=== PATIENT | male | born 1995 | race American Indian/Alaskan Native ===

== ENCOUNTER 2016-08-13 10:33 | Inpatient (IN) | payer OTHER ==
[2016-08-13] MEDS ORDERED: Sodium Chloride 0.9% 1,000 ML IV STA (11:11)
--- NOTE | 2016-08-13 11:20 | ED PDOC ---
HPI: Abdomen Time Seen by Provider: 08/13/16 10:47 Chief Complaint (Nursing): Abdominal Pain Chief Complaint (Provider): abdominal pain, nausea vomiting History Per: Patient History/Exam Limitations: no limitations Onset/Duration Of Symptoms: Days (2), Gradual Current Symptoms Are (Timing): Intermittent Episodes Context: Food Severity: Moderate Location Of Pain/Discomfort: Diffuse, Epigastric Quality Of Discomfort: Sharp, Cramping Associated Symptoms: Nausea, Vomiting, Loss Of Appetite. denies: Diarrhea, Back Pain, Chest Pain Exacerbating Factors: Food Alleviating Factors: None Last Bowel Movement: Today Additional Complaint(s): 21yo male c/o abdominal pain poorly localized but noticed first in his epigastrum, thinks "i may have an ulcer", associated with nausea nonbloody vomiting and loss of appetite. No fever. No diarrhea. Denies foreign travel, IVDU, undercooked or raw foods or sick contacts. No prior history of recent similar symptoms. Past Medical History Reviewed: Historical Data, Nursing Documentation, Vital Signs Vital Signs: Last Vital Signs Temp 6 F L 08/13/16 10:41 Pulse 58 L 08/13/16 10:41 Resp 20 08/13/16 10:41 BP 121/73 08/13/16 10:41 Pulse Ox 100 08/13/16 11:20 - Medical History PMH: No Chronic Diseases - Surgical History Surgical History: No Surg Hx - Family History Family History: States: Unknown Family Hx - Living Arrangements Living Arrangements: With Family - Social History Drugs: Denies - Immunization History Hx Tetanus Toxoid Vaccination: No Hx Influenza Vaccination: No Hx Pneumococcal Vaccination: No - Home Medications Home Medications: Ambulatory Orders Medication Instructions Recorded No Known Home Med [No Known Home 01/28/15 Med] - Allergies Allergies/Adverse Reactions: Allergies Allergy/AdvReac Type Severity Reaction Status Date / Time No Known Allergies Allergy Verified 02/19/14 08:07 Review of Systems ROS Statement: Except As Marked, All Systems Reviewed And Found Negative Constitutional: Negative for: Fever, Chills Cardiovascular: Negative for: Chest Pain, Palpitations Respiratory: Negative for: Cough, Shortness of Breath Gastrointestinal: Positive for: Nausea, Vomiting, Abdominal Pain. Negative for : Diarrhea, Melena, Hematochezia, Hematemesis Genitourinary Male: Negative for: Dysuria, Frequency Skin: Negative for: Rash, Lesions Neurological: Negative for: Weakness, Numbness, Headache, Dizziness Physical Exam - Reviewed Nursing Documentation Reviewed: Yes Vital Signs Reviewed: Yes - Physical Exam Appears: Positive for: Well, Non-toxic, No Acute Distress Head Exam: Positive for: ATRAUMATIC, NORMAL INSPECTION, NORMOCEPHALIC Skin: Positive for: Normal Color, Warm, DRY Eye Exam: Positive for: EOMI, Normal appearance, PERRL ENT: Positive for: Normal ENT Inspection Neck: Positive for: Normal, Painless ROM Cardiovascular/Chest: Positive for: Regular Rate, Rhythm Respiratory: Positive for: CNT, Normal Breath Sounds Gastrointestinal/Abdominal: Positive for: Bowel Sounds, Soft, Tenderness (mild diffuse nonlocalized tenderness) Back: Positive for: Normal Inspection Extremity: Positive for: Normal ROM Neurologic/Psych: Positive for: Alert, Oriented - Laboratory Results Result Diagrams: 08/13/16 11:23 08/13/16 11:23 - ECG O2 Sat by Pulse Oximetry: 100 Pulse Ox Interpretation: Normal Medical Decision Making Medical Decision Making: workup for undifferentiated abdominal pain and nausea initiated. Bloodwork, IVF, antiemetic, pepcid and bentyl ordered. Labs reveal significant transaminitis. Normal bili, mild elev Alk Phos and total CK. Pt denies known prior history of hepatitis or liver problems. Denies psychiatric history or tylenol use. Additional hepatitis panel ordered. US RUQ unremarkable. 340p d/w GI control system manager Dr Velazco, recommends coags, admit will consult. Care transferred to Dr De Santiago hospitalist. Disposition - Clinical Impression Clinical Impression: Acute hepatitis, Elevated transaminase measurement - Patient ED Disposition Is Patient to be Admitted: Yes Counseled Patient/Family Regarding: Studies Performed, Diagnosis, Need For Followup - Disposition Disposition Time: 15:40 Condition: GOOD - Pt Status Changed To: Hospital Disposition Of: Observation - POA Present On Arrival: None
[2016-08-13 11:34] LABS: BASO # 0.1 K/uL (0.0-0.2); BASO % 0.7 % (0.0-2.0); EOS # 0.2 K/uL (0.0-0.7); HEMATOCRIT 44.9 % (35.0-51.0); LYMPH # 1.7 K/uL (1.0-4.3); LYMPH % 18.9 % (20.0-40.0); MEAN CELL VOLUME 97.3 fl (80.0-94.0); MEAN CORPUSCULAR HEMOGLOBIN 32.6 pg (27.0-31.0); MEAN CORPUSCULAR HGB CONC 33.5 g/dL (33.0-37.0); MEAN PLATELET VOLUME 8.6 fl (7.2-11.7); MONO # 1.1 K/uL (0.0-0.8); MONO % 12.5 % (0.0-10.0); NEUT # 5.8 K/uL (1.8-7.0); NEUT % 65.9 % (50.0-75.0); NRBC % 0.1 % (0.0-0.0); RED CELL DISTRIBUTION WIDTH 13.5 % (11.5-14.5); WHITE BLOOD COUNT 8.9 K/uL (4.8-10.8)
[2016-08-13 11:43] LABS: RBC URINE 6 /hpf (0-3); URINE BILIRUBIN NEGATIVE (NEGATIVE); URINE BLOOD NEGATIVE (NEGATIVE); URINE COLOR AMBER (YELLOW); URINE GLUCOSE (UA) NEG (Normal); URINE KETONE NEGATIVE (NEGATIVE); URINE LEUKOCYTE ESTERASE NEG Leu/uL (Negative); URINE PROTEIN 30 mg/dL (NEGATIVE); WBC URINE 2 /hpf (0-5)
[2016-08-13 11:45] LABS: ALB/GLOB RATIO 1.2 (1.0-2.1); ALKALINE PHOSPHATASE 129 U/L (38-126); BILIRUBIN,TOTAL 1.3 mg/dl (0.2-1.3); BLOOD UREA NITROGEN 13 mg/dl (9-20); CALCIUM 10.2 mg/dL (8.4-10.2); CARBON DIOXIDE 28 mmol/L (22-30); CHLORIDE 102 mmol/L (98-107); GFR AFRICAN-AMERICAN > 60; GLUCOSE,RANDOM 100 mg/dL (75-110); LIPASE 74 U/L (23-300); SODIUM 144 mmol/l (132-148)
[2016-08-13 11:48] LABS: POTASSIUM 4.3 MMOL/L (3.6-5.0)
[2016-08-13 12:16] LABS: AST/SGOT 1409 U/L (17-59)
[2016-08-13 12:42] LABS: ALT/SGPT 2331 U/L (21-72)
--- NOTE | 2016-08-13 15:05 | US ---
HISTORY: RUQ, abnormal LFTs COMPARISON: None available. TECHNIQUE: Sonographic evaluation of the right upper quadrant of the abdomen. FINDINGS: LIVER: Measures 16.2 cm in length and appears otherwise within normal limits. No focal hepatic mass identified. The main portal vein appears patent with normal directional flow. No intrahepatic bile duct dilatation. GALLBLADDER: No gallstones. No gallbladder wall thickening or pericholecystic edema. Negative sonographic Greer's sign as assessed by the photographic printer. COMMON BILE DUCT: Measures 2 mm. PANCREAS: Not well-visualized. RIGHT KIDNEY: Measures 10.6 x 5.7 x 3.6 cm. No obstructing calculus or hydronephrosis. AORTA: Limited visualization appears grossly unremarkable. IVC: Limited visualization appears grossly unremarkable. OTHER FINDINGS: None . IMPRESSION: Unremarkable right upper quadrant ultrasound as above.
--- NOTE | 2016-08-13 16:43 | CP.PCM.HP ---
History of Present Illness - History of Present Illness History of Present Illness: CC: abdominal pain HPI: 21 year old male with no past medical history presents with a 2 day history of moderate the severe waxing and waning abdominal pain midepigastric and in a band like distribution in the upper regions. This was associated with 2 episodes of nonbloody nonbilious emesis, and nausea and anorexia. Patient was extensively questioned on substance abuse, alcohol use, recent travel, contacts with recent travel, sexual history, one partner in 5 years. US in ER was neg for RUQ pathology. Transaminases were significantly elevated, AST/ALT 1400/2300 , normal TBILI and lipase. Hep panel and HIV negative. patient made NPO, given fluids. GI consulted in ER, Dr. Velazco, appreciated and followed. Discussed with ER attending. Vitals stable, no acute distress ROS: per HPI, all other systems reviewed and negative by me PMH: none PSH: none FH: DM HTN SH: Denies tobacco, ETOH, IVDU, one young son. MEDS: as below and reviewed ALLERGIES: NKDA SURROGATE DECISION MAKER: EXAM: Vitals stable and reviewed Temp Pulse Resp BP Pulse Ox 97.7 F 58 L 16 120/68 97 08/13/16 17:10 08/13/16 17:10 08/13/16 17:10 08/13/16 17:10 08/13/16 16:53 GEN: WDWN, alert, cooperative HEENT: NCAT, PERRL, EOMI Neck: supple, no lymphadenopathy CARDIO: +S1S2, RRR, NO M/R/G LUNG: CTAB, NO W/R/R ABD: soft, +generalized tenderness, ND, no masses, no HSM EXT: no edema, pedal pulses Neuro: AAOx3, Strength equal, bilateral UE/LE Psych: normal mood, normal affect LABS as below and reviewed Most Recent Lab Values WBC 8.9 K/uL (4.8-10.8) 08/13/16 11:23 RBC 4.62 Mil/uL (4.40-5.90) 08/13/16 11:23 Hgb 15.1 g/dL (12.0-18.0) 08/13/16 11:23 Hct 44.9 % (35.0-51.0) 08/13/16 11:23 MCV 97.3 fl (80.0-94.0) H 08/13/16 11:23 MCH 32.6 pg (27.0-31.0) H 08/13/16 11:23 MCHC 33.5 g/dL (33.0-37.0) 08/13/16 11:23 RDW 13.5 % (11.5-14.5) 08/13/16 11:23 Plt Count 217 K/uL (130-400) 08/13/16 11:23 MPV 8.6 fl (7.2-11.7) 08/13/16 11:23 Neut % (Auto) 65.9 % (50.0-75.0) 08/13/16 11: Lymph % (Auto) 18.9 % (20.0-40.0) L 08/13/16 11:23 Hamilton % (Auto) 12.5 % (0.0-10.0) H 08/13/16 11:23 Eos % (Auto) 2.0 % (0.0-4.0) 08/13/16 11:23 Baso % (Auto) 0.7 % (0.0-2.0) 08/13/16 11:23 Neut # 5.8 K/uL (1.8-7.0) 08/13/16 11:23 Lymph # 1.7 K/uL (1.0-4.3) 08/13/16 11:23 Hamilton # 1.1 K/uL (0.0-0.8) H 08/13/16 11:23 Eos # 0.2 K/uL (0.0-0.7) 08/13/16 11:23 Baso # 0.1 K/uL (0.0-0.2) 08/13/16 11:23 PT 12.1 SECONDS (9.6-11.2) H 08/13/16 16:45 INR 1.16 (0.92-1.08) H 08/13/16 16:45 APTT 25.6 SECONDS (23.3-32.5) 08/13/16 16:45 Sodium 144 mmol/l (132-148) 08/13/16 11:23 Potassium 4.3 MMOL/L (3.6-5.0) 08/13/16 11:23 Chloride 102 mmol/L (98-107) 08/13/16 11:23 Carbon Dioxide 28 mmol/L (22-30) 08/13/16 11:23 Anion Gap 18 (10-20) 08/13/16 11:23 BUN 13 mg/dl (9-20) 08/13/16 11:23 Creatinine 0.9 mg/dL (0.8-1.5) 08/13/16 11:23 Est GFR ( Amer) > 60 08/13/16 11:23 Est GFR (Non-Af Amer) > 60 08/13/16 11:23 Random Glucose 100 mg/dL (75-110) 08/13/16 11:23 Calcium 10.2 mg/dL (8.4-10.2) 08/13/16 11:23 Total Bilirubin 1.3 mg/dl (0.2-1.3) 08/13/16 11:23 AST 1409 U/L (17-59) H 08/13/16 11:23 ALT 2331 U/L (21-72) H 08/13/16 11:23 Alkaline Phosphatase 129 U/L (38-126) H D 08/13/16 11:23 Total Creatine Kinase 216 U/L (55-170) H 08/13/16 11:28 Total Protein 8.0 G/DL (6.3-8.2) 08/13/16 11:23 Albumin 4.4 g/dL (3.5-5.0) 08/13/16 11:23 Globulin 3.6 gm/dL (2.2-3.9) 08/13/16 11:23 Albumin/Globulin Ratio 1.2 (1.0-2.1) 08/13/16 11:23 Lipase 74 U/L (23-300) 08/13/16 11:23 Urine Color Brittany (YELLOW) 08/13/16 11:23 Urine Clarity Slighty-cloudy (Clear) 08/13/16 11:23 Urine pH 5.0 (5.0-8.0) 08/13/16 11:23 Ur Specific [place] 1.034 (1.003-1.030) H 08/13/16 11:23 Urine Protein 30 mg/dL (NEGATIVE) 08/13/16 11:23 Urine Glucose (UA) Neg mg/dL (Normal) 08/13/16 11:23 Urine Ketones Negative mg/dL (NEGATIVE) 08/13/16 11:23 Urine Blood Negative (NEGATIVE) 08/13/16 11:23 Urine Nitrate Negative (NEGATIVE) 08/13/16 11:23 Urine Bilirubin Negative (NEGATIVE) 08/13/16 11:23 Urine Urobilinogen 4.0 mg/dL (0.2-1.0) 08/13/16 11:23 Ur Leukocyte Esterase Neg Marjorie/uL (Negative) 08/13/16 11:23 Urine RBC (Auto) 6 /hpf (0-3) H 08/13/16 11:23 Urine Microscopic WBC 2 /hpf (0-5) 08/13/16 11:23 Ur Squamous Epith Cells < 1 /hpf (0-5) 08/13/16 11:23 Acetaminophen < 10.0 ug/ml (10.0-30.0) L 08/13/16 16:45 Hepatitis A IgM Ab Negative (NEGATIVE) 08/13/16 14:00 Hep Bs Antigen Negative (NEGATIVE) 08/13/16 14:00 Hep B Core IgM Ab Negative (NEGATIVE) 08/13/16 14:00 Hepatitis C Antibody Negative (NEGATIVE) 08/13/16 14:00 HIV-1 Ab Rapid Screen Non reactive (NON REAC) 08/13/16 16:45 Medications Allergies No Known Allergies Allergy (Verified 02/19/14 08:07) Height & Weight Height 6 ft Weight 130 lb Start Date/Time Active Medications 08/13/16 16:40 Ondansetron [Zofran Inj] 4 mg IVP Q6 PRN 08/13/16 17:52 Ketorolac [Toradol] 15 mg IVP Q6 PRN 08/13/16 18:00 Potassium Ch 20mEq in D5-1/2NS [Potassium Chl 20 mEq in D5-1/2NS] 1,000 ml IV 125 mls/hr 08/14/16 09:00 Enoxaparin [Lovenox] 40 mg SC DAILY ASSESSMENT AND PLAN: 21 year old male with no past medical history presents with a 2 day history of moderate the severe waxing and waning abdominal pain midepigastric and in a band like distribution in the upper regions. This was associated with 2 episodes of nonbloody nonbilious emesis, and nausea and anorexia. Patient was extensively questioned on substance abuse, alcohol use, recent travel, contacts with recent travel, sexual history, one partner in 5 years. US in ER was neg for RUQ pathology. Transaminases were significantly elevated, AST/ALT 1400/2300 , normal TBILI and lipase. Hep panel and HIV negative. patient made NPO, given fluids. GI consulted in ER, Dr. Velazco, appreciated and followed. Discussed with ER attending. Vitals stable, no acute distress Abdominal Pain Elevated Transaminases Acute Hepatitis AST/ALT 1400/2300, normal TBILI and lipase. Hep panel and HIV negative GI Consult appreciated and followed NPO Maintenance Fluids Vitals stable, NAD UDS pending DVT ppx lovenox Present on Admission - Present on Admission Any Indicators Present on Admission: No Past Patient History - Infectious Disease Hx of Infectious Diseases: None - Past Social History Drugs: Denies - CARDIAC Hx Cardiac Disorders: No - PSYCHIATRIC Hx Substance Use: No - SURGICAL HISTORY Hx Surgeries: No - ANESTHESIA Hx Anesthesia: No Meds Allergies/Adverse Reactions: Allergies Allergy/AdvReac Type Severity Reaction Status Date / Time No Known Allergies Allergy Verified 02/19/14 08:07 Results - Vital Signs Recent Vital Signs: Last Vital Signs Temp 6 F L 08/13/16 10:41 Pulse 58 L 08/13/16 10:41 Resp 20 08/13/16 10:41 BP 121/73 08/13/16 10:41 Pulse Ox 100 08/13/16 16:08 - Labs Result Diagrams: 08/13/16 11:23 08/13/16 11:23
[2016-08-13] MEDS ORDERED: Sodium Chloride 0.9% 1,000 ML IV SCH (16:45)
[2016-08-13 17:22] LABS: PARTIAL THROMBOPLASTIN TIME 25.6 SECONDS (23.3-32.5)
--- NOTE | 2016-08-13 17:57 | CP.PCM.CON ---
History of Present Illness - History of Present Illness History of Present Illness: 21 yo male admitted with epigastric and LUQ abdominal pain associated with nausea and vomiting starting Thursday 2 30 AM. Found to have very high LFTs. No recent travel or shellfish/sushi consumption. No prior significant medical history. Review of Systems - Constitutional Constitutional: absent: Chills - EENT Eyes: absent: Blind Spots Ears: absent: Decreased Hearing Nose/Mouth/Throat: absent: Epistaxis - Cardiovascular Cardiovascular: absent: Chest Pain - Respiratory Respiratory: absent: Cough - Gastrointestinal Gastrointestinal: Abdominal Pain, Vomiting Past Patient History - Infectious Disease Hx of Infectious Diseases: None - Past Social History Drugs: Denies - CARDIAC Hx Cardiac Disorders: No - PSYCHIATRIC Hx Substance Use: No - SURGICAL HISTORY Hx Surgeries: No - ANESTHESIA Hx Anesthesia: No Meds Allergies/Adverse Reactions: Allergies Allergy/AdvReac Type Severity Reaction Status Date / Time No Known Allergies Allergy Verified 02/19/14 08:07 - Medications Medications: Current Medications Enoxaparin Sodium (Lovenox) 40 mg SC DAILY [facility] PRN Reason: Protocol Potassium Chloride/Dextrose/Sod Cl (Potassium Chl 20 Meq In D5-1/2ns) 1,000 mls @ 125 mls/hr IV .Q8H [facility] Stop: 08/14/16 18:01 Ketorolac Tromethamine (Toradol) 15 mg IVP Q6 PRN PRN Reason: pain 4-10 Ondansetron HCl (Zofran Inj) 4 mg IVP Q6 PRN PRN Reason: Nausea/Vomiting Physical Exam - Eye Exam Pupil Exam: PERRL - ENT Exam ENT Exam: Mucous Membranes Moist - Cardiovascular Exam Cardiovascular Exam: REGULAR RHYTHM, +S1, +S2 - GI/Abdominal Exam GI & Abdominal Exam: Normal Bowel Sounds, Soft, Tenderness Additional comments: epigastrum and LUQ Results - Vital Signs Recent Vital Signs: Last Vital Signs Temp 97.7 F 08/13/16 17:10 Pulse 58 L 08/13/16 17:10 Resp 16 08/13/16 17:10 BP 120/68 08/13/16 17:10 Pulse Ox 97 08/13/16 16:53 - Labs Result Diagrams: 08/13/16 11:23 08/13/16 11:23 Labs: Laboratory Results - last 24 hr 08/13/16 16:45 PT 12.1 H INR 1.16 H APTT 25.6 Acetaminophen < 10.0 L HIV-1 Ab Rapid Screen Non reactive - Imaging and Cardiology US - abdomen Status: Report reviewed by me Assessment & Plan (1) Transaminitis Assessment and Plan: Acute elevation LFTs. Cause unclear. Broad lab workup ordered. Repeat LFTs in AM. Status: Acute
[2016-08-13 18:49] LABS: IRON 142 ug/dL (49-181)
[2016-08-13] MEDS ORDERED: Pneumococcal 23-Valent Vaccine IM ONE (20:00)
[2016-08-13] MEDS: Potassium Ch 20mEq in D5-1/2NS 1,000 ML IV SCH (20:31)
[2016-08-14] MEDS: Potassium Ch 20mEq in D5-1/2NS 1,000 ML IV SCH ×4 (03:40→22:57)
[2016-08-14 06:33] LABS: CHLORIDE 104 mmol/L (98-107); SODIUM 138 mmol/l (132-148)
[2016-08-14 06:35] LABS: ALB/GLOB RATIO 1.2 (1.0-2.1); ALKALINE PHOSPHATASE 108 U/L (38-126); BILIRUBIN,TOTAL 1.8 mg/dl (0.2-1.3); CARBON DIOXIDE 24 mmol/L (22-30); GFR AFRICAN-AMERICAN > 60; TOTAL PROTEIN 6.3 G/DL (6.3-8.2)
[2016-08-14 06:36] LABS: BLOOD UREA NITROGEN 10 mg/dl (9-20); CALCIUM 8.6 mg/dL (8.4-10.2); GLUCOSE,RANDOM 97 mg/dL (75-110)
[2016-08-14 07:07] LABS: BASO % 0.4 % (0.0-2.0); EOS # 0.3 K/uL (0.0-0.7); EOS % 2.8 % (0.0-4.0); HEMATOCRIT 43.2 % (35.0-51.0); LYMPH % 20.6 % (20.0-40.0); MEAN CELL VOLUME 97.7 fl (80.0-94.0); MEAN CORPUSCULAR HGB CONC 33.7 g/dL (33.0-37.0); MEAN PLATELET VOLUME 8.7 fl (7.2-11.7); MONO # 1.2 K/uL (0.0-0.8); MONO % 11.8 % (0.0-10.0); NEUT # 6.3 K/uL (1.8-7.0); NEUT % 64.4 % (50.0-75.0); NRBC % 0.2 % (0.0-0.0); RED CELL DISTRIBUTION WIDTH 13.6 % (11.5-14.5); WHITE BLOOD COUNT 9.8 K/uL (4.8-10.8)
[2016-08-14 07:18] LABS: ALT/SGPT 1900 U/L (21-72); AST/SGOT > 750 U/L (17-59)
[2016-08-14] MEDS: Enoxaparin 40 mg Syringe SC SCH (08:13)
[2016-08-14 15:06] LABS: CYTOMEGALOVIRUS AB (IGG) <0.91 (<0.91)
[2016-08-14 15:32] LABS: EPSTEIN-BARR VCA AB IGM <0.91 (<0.91)
--- NOTE | 2016-08-14 15:38 | CP.PCM.PN ---
Subjective - Date & Time of Evaluation Date of Evaluation: 08/14/16 Time of Evaluation: 15:36 - Subjective Subjective: Patient with persisting abdominal pain in left upper abdomen Objective - Vital Signs/Intake and Output Vital Signs (last 24 hours): Temp Pulse Resp BP Pulse Ox 97.1 F L 67 20 109/75 98 08/14/16 07:54 08/14/16 07:54 08/14/16 07:54 08/14/16 07:54 08/14/16 07:54 - Medications Medications: Current Medications Enoxaparin Sodium (Lovenox) 40 mg SC DAILY [facility] PRN Reason: Protocol Last Admin: 08/14/16 08:13 Dose: 40 mg Potassium Chloride/Dextrose/Sod Cl (Potassium Chl 20 Meq In D5-1/2ns) 1,000 mls @ 125 mls/hr IV .Q8H [facility] Stop: 08/14/16 18:01 Last Admin: 08/14/16 13:22 Dose: 125 mls/hr Ketorolac Tromethamine (Toradol) 15 mg IVP Q6 PRN PRN Reason: pain 4-10 Last Admin: 08/14/16 13:22 Dose: 15 mg Ondansetron HCl (Zofran Inj) 4 mg IVP Q6 PRN PRN Reason: Nausea/Vomiting - Labs Labs: 08/14/16 05:35 08/14/16 05:35 PT 12.1 SECONDS (9.6-11.2) H 08/13/16 16:45 INR 1.16 (0.92-1.08) H 08/13/16 16:45 APTT 25.6 SECONDS (23.3-32.5) 08/13/16 16:45 - Head Exam Head Exam: ATRAUMATIC - Eye Exam Eye Exam: Normal appearance - ENT Exam ENT Exam: Mucous Membranes Moist - Neck Exam Neck Exam: Normal Inspection - Respiratory Exam Respiratory Exam: NORMAL BREATHING PATTERN - Cardiovascular Exam Cardiovascular Exam: REGULAR RHYTHM - GI/Abdominal Exam GI & Abdominal Exam: Soft, Tenderness, Normal Bowel Sounds Additional comments: LUQ tenderness Assessment and Plan (1) Transaminitis Assessment & Plan: LUQ abdominal pain persisits. LFTs still very high though numbers are slightly lower. Continue to follow labs. Pantoprazole added. CT abdomen. Status: Acute
[2016-08-14] MEDS ORDERED: Iohexol 240 (50 ml) PO ONE (15:45)
--- NOTE | 2016-08-14 16:53 | CP.PCM.PN ---
Subjective - Date & Time of Evaluation Date of Evaluation: 08/14/16 Time of Evaluation: 16:42 - Subjective Subjective: pt seen examined at bedside, complains of increased pain given additional dose of toradol with relief no chest pain no dyspnea vitals stable no acute distress pt to get CT abd with and without contrast for consistent abdominal pain. discussed with patient's mother with patient consent: Celeste Vanegas [phone] who would like to be kept updated. Objective - Vital Signs/Intake and Output Vital Signs (last 24 hours): Temp Pulse Resp BP Pulse Ox 98.2 F 76 18 113/76 97 08/14/16 16:29 08/14/16 16:29 08/14/16 16:29 08/14/16 16:29 08/14/16 16:29 - Medications Medications: Current Medications Enoxaparin Sodium (Lovenox) 40 mg SC DAILY [facility] PRN Reason: Protocol Last Admin: 08/14/16 08:13 Dose: 40 mg Potassium Chloride/Dextrose/Sod Cl (Potassium Chl 20 Meq In D5-1/2ns) 1,000 mls @ 125 mls/hr IV .Q8H [facility] Stop: 08/14/16 18:01 Last Admin: 08/14/16 13:22 Dose: 125 mls/hr Ketorolac Tromethamine (Toradol) 15 mg IVP Q6 PRN PRN Reason: pain 4-10 Last Admin: 08/14/16 13:22 Dose: 15 mg Ondansetron HCl (Zofran Inj) 4 mg IVP Q6 PRN PRN Reason: Nausea/Vomiting Last Admin: 08/14/16 16:34 Dose: 4 mg Pantoprazole Sodium (Protonix Inj) 40 mg IVP BID [facility] Last Admin: 08/14/16 16:27 Dose: 40 mg - Labs Labs: 08/14/16 05:35 08/14/16 05:35 PT 12.1 SECONDS (9.6-11.2) H 08/13/16 16:45 INR 1.16 (0.92-1.08) H 08/13/16 16:45 APTT 25.6 SECONDS (23.3-32.5) 08/13/16 16:45 Assessment and Plan - Assessment and Plan (Free Text) Plan: 21 year old male with no past medical history presents with a 2 day history of moderate the severe waxing and waning abdominal pain midepigastric and in a band like distribution in the upper regions. This was associated with 2 episodes of nonbloody nonbilious emesis, and nausea and anorexia. Patient was extensively questioned on substance abuse, alcohol use, recent travel, contacts with recent travel, sexual history, one partner in 5 years. US in ER was neg for RUQ pathology. Transaminases were significantly elevated, AST/ALT 1400/2300 , normal TBILI and lipase. Hep panel and HIV negative. patient made NPO, given fluids. GI consulted in ER, Dr. Velazco, appreciated and followed. Discussed with ER attending. Vitals stable, no acute distress Abdominal Pain Transaminitis Afebrile, no WBC Patient with increased cramping abdominal pain this morning, given additional toradol. Has not had BM in 3 days. HD stable. Will obtain CT Abd w and w/o Contrast today. Protonix also added per GI recs , appreciated and followed AST/ALT 1400/2300 on admission, normal TBILI and lipase. This morning AST/ALT >750/1900, improving, TBILI elevated to 1.8 from 1.5 yesterday HIV negative CMV IgG Ab NEG CMV IgM Ab PENDING EBV Ag IgM Ab NEG Hep panel NEG GI Consult appreciated and followed NPO Maintenance Fluids, continue D5 1/2 NS + 20 KCl Vitals stable, NAD UDS +cannabinoids Pain control with Toradol DVT ppx lovenox Discussed with patient's mother with patient consent: Celeste Vanegas [phone] who would like to be updated.
[2016-08-14 17:49] LABS: CYTOMEGALOVIRUS AB (IGM) <0.2 AI (< OR = 0.8)
[2016-08-14] MEDS ORDERED: Sodium Chloride 0.9% 50 ML IV ONE (17:53)
[2016-08-14] MEDS ORDERED: Iohexol 300 100 ML IJ ONE (17:53)
--- NOTE | 2016-08-14 19:10 | CT ---
PROCEDURE: CT Abdomen and Pelvis with contrast HISTORY: Abdominal pain COMPARISON: None. TECHNIQUE: Contrast dose: 95 cc Omnipaque 300 Radiation dose: Total exam DLP = 269.52 mGy-cm. FINDINGS: LOWER THORAX: Unremarkable. LIVER: Unremarkable. No gross lesion or ductal dilatation. No abnormalities with respect to visualized portal venous system, hepatic veins. GALLBLADDER AND BILE DUCTS: Unremarkable. PANCREAS: Unremarkable. No gross lesion or ductal dilatation. SPLEEN: Unremarkable. ADRENALS: Unremarkable. No mass. KIDNEYS AND URETERS: Unremarkable. No hydronephrosis. No solid mass. VASCULATURE: Unremarkable. No aortic aneurysm. BOWEL: Unremarkable. No obstruction. No gross mural thickening. APPENDIX: Normal appendix. PERITONEUM: Low volume ascites confined to the pelvis. Mean Hounsfield unit values 15. This appears be uncomplicated common nonhemorrhagic ascites. No free air, drainable collection identified. LYMPH NODES: Unremarkable. No enlarged lymph nodes. BLADDER: Unremarkable. REPRODUCTIVE: Unremarkable. BONES: No acute fracture. OTHER FINDINGS: None. IMPRESSION: Trace free fluid in the pelvis of uncertain etiology, significance. Otherwise no acute/ significant abnormalities.
[2016-08-15] MEDS: Potassium Ch 20mEq in D5-1/2NS 1,000 ML IV SCH ×3 (03:35→21:47)
[2016-08-15 07:23] LABS: ALB/GLOB RATIO 1.1 (1.0-2.1); ALKALINE PHOSPHATASE 129 U/L (38-126); BLOOD UREA NITROGEN 7 mg/dl (9-20); CARBON DIOXIDE 25 mmol/L (22-30); CHLORIDE 103 mmol/L (98-107); GFR AFRICAN-AMERICAN > 60; GLUCOSE,RANDOM 96 mg/dL (75-110); POTASSIUM 4.1 MMOL/L (3.6-5.0); SODIUM 136 mmol/l (132-148); TOTAL PROTEIN 7.1 G/DL (6.3-8.2)
[2016-08-15 07:33] LABS: AST/SGOT 1081 U/L (17-59)
[2016-08-15 08:24] LABS: ALT/SGPT 2391 U/L (21-72)
--- NOTE | 2016-08-15 09:28 | CP.PCM.PN ---
Subjective - Date & Time of Evaluation Date of Evaluation: 08/15/16 Time of Evaluation: 09:22 - Subjective Subjective: patient appeears much more comfortable and states abdominal pain has improved Objective - Vital Signs/Intake and Output Vital Signs (last 24 hours): Temp Pulse Resp BP Pulse Ox 97.4 F L 97 H 20 113/79 99 08/15/16 08:08 08/15/16 08:08 08/15/16 08:08 08/15/16 08:08 08/15/16 08:08 - Medications Medications: Current Medications Enoxaparin Sodium (Lovenox) 40 mg SC DAILY [facility] PRN Reason: Protocol Last Admin: 08/14/16 08:13 Dose: 40 mg Potassium Chloride/Dextrose/Sod Cl (Potassium Chl 20 Meq In D5-1/2ns) 1,000 mls @ 123.762 mls/hr IV .Q8H5M [facility] Last Admin: 08/15/16 03:35 Dose: 123.762 mls/hr Ketorolac Tromethamine (Toradol) 15 mg IVP Q6 PRN PRN Reason: pain 4-10 Last Admin: 08/15/16 03:53 Dose: 15 mg Ondansetron HCl (Zofran Inj) 4 mg IVP Q6 PRN PRN Reason: Nausea/Vomiting Last Admin: 08/14/16 16:34 Dose: 4 mg Pantoprazole Sodium (Protonix Inj) 40 mg IVP BID [facility] Last Admin: 08/14/16 16:27 Dose: 40 mg - Labs Labs: 08/15/16 05:35 PT 13.9 SECONDS (9.6-11.2) H 08/15/16 05:35 INR 1.34 (0.92-1.08) H 08/15/16 05:35 APTT 25.6 SECONDS (23.3-32.5) 08/13/16 16:45 - Head Exam Head Exam: ATRAUMATIC - Eye Exam Eye Exam: Normal appearance - ENT Exam ENT Exam: Mucous Membranes Moist - Respiratory Exam Respiratory Exam: NORMAL BREATHING PATTERN - Cardiovascular Exam Cardiovascular Exam: REGULAR RHYTHM, +S1, +S2 - GI/Abdominal Exam GI & Abdominal Exam: Soft, Tenderness, Normal Bowel Sounds Additional comments: mild LUQ tenderness Assessment and Plan (1) Transaminitis Assessment & Plan: Transaminases , INR, and Bili a little higher than yesterday though albumin is better. Clinically appears much better. Will start on light diet. Discussed with Dr. Martinez and we will reach out to [facility] for advice and possible transfer if they feel it necessary. Status: Acute
[2016-08-15] MEDS: Enoxaparin 40 mg Syringe SC SCH (09:31)
--- NOTE | 2016-08-15 16:03 | CP.PCM.PN ---
Subjective - Date & Time of Evaluation Date of Evaluation: 08/15/16 Time of Evaluation: 11:00 - Subjective Subjective: Patient was seen and evaluated bedside. Feeling a little better. abdominal pain has improved , denies any nausea, vomiting. LFT-s trending up from yesterday No acute issues overnight. Hemodynamically stable, afebrile Objective - Vital Signs/Intake and Output Vital Signs (last 24 hours): Temp Pulse Resp BP Pulse Ox 98.1 F 52 L 18 106/63 100 08/15/16 15:48 08/15/16 15:48 08/15/16 15:48 08/15/16 15:48 08/15/16 15:48 - Medications Medications: Current Medications Enoxaparin Sodium (Lovenox) 40 mg SC DAILY [facility] PRN Reason: Protocol Last Admin: 08/15/16 09:31 Dose: 40 mg Potassium Chloride/Dextrose/Sod Cl (Potassium Chl 20 Meq In D5-1/2ns) 1,000 mls @ 123.762 mls/hr IV .Q8H5M [facility] Last Admin: 08/15/16 15:05 Dose: 123.762 mls/hr Ketorolac Tromethamine (Toradol) 15 mg IVP Q6 PRN PRN Reason: pain 4-10 Last Admin: 08/15/16 03:53 Dose: 15 mg Ondansetron HCl (Zofran Inj) 4 mg IVP Q6 PRN PRN Reason: Nausea/Vomiting Last Admin: 08/15/16 15:03 Dose: 4 mg Pantoprazole Sodium (Protonix Inj) 40 mg IVP BID [facility] Last Admin: 08/15/16 09:30 Dose: 40 mg - Labs Labs: 08/15/16 05:35 PT 13.9 SECONDS (9.6-11.2) H 08/15/16 05:35 INR 1.34 (0.92-1.08) H 08/15/16 05:35 APTT 25.6 SECONDS (23.3-32.5) 08/13/16 16:45 - Constitutional Appears: Well, Non-toxic, No Acute Distress, Cachectic - Head Exam Head Exam: ATRAUMATIC, NORMAL INSPECTION, NORMOCEPHALIC - Eye Exam Eye Exam: EOMI, Normal appearance, PERRL Pupil Exam: NORMAL ACCOMODATION - ENT Exam ENT Exam: Mucous Membranes Moist, Normal Exam - Neck Exam Neck Exam: Full ROM, Normal Inspection - Respiratory Exam Respiratory Exam: Clear to Ausculation Bilateral, NORMAL BREATHING PATTERN. absent: Rales, Rhonchi, Wheezes - Cardiovascular Exam Cardiovascular Exam: REGULAR RHYTHM, RRR, +S1, +S2. absent: JVD - GI/Abdominal Exam GI & Abdominal Exam: Soft, Normal Bowel Sounds. absent: Distended, Guarding, Tenderness, Hernia, Mass, Rebound - Rectal Exam Rectal Exam: Deferred - Extremities Exam Extremities Exam: Full ROM, Normal Capillary Refill, Normal Inspection. absent : Calf Tenderness, Pedal Edema - Back Exam Back Exam: NORMAL INSPECTION - Neurological Exam Neurological Exam: Alert, Awake, CN II-XII Intact, Oriented x3 - Psychiatric Exam Psychiatric exam: Normal Affect, Normal Mood - Skin Skin Exam: Dry, Intact, Normal Color, Warm Assessment and Plan - Assessment and Plan (Free Text) Assessment: 21 year old male with no past medical history presented with 2 day history of moderate to severe waxing and waning abdominal pain midepigastric and in a band like distribution in the upper regions. This was associated with 2 episodes of nonbloody nonbilious emesis, nausea and anorexia. Patient was extensively questioned on substance abuse, alcohol use, recent travel, contacts with recent travel, sexual history, one partner in 5 years. US in ER was neg for RUQ pathology. Transaminases were significantly elevated, AST/ALT 1400/2300 , normal T.BILI and lipase. Hep panel A,B,C EBV, CMV and HIV negative.Patient admitted for acute hepatitis and GI consulted 1.Acute hepatitis of unclear etiology Abdominal pain improving but LFT-s trending up today AST/ALT 750/1900 to 1081/ 2391 GI on consult , following. case discussed witrh Dr. Velazco and recommended referral to [facility] liver [facility] called service and waiting response Hepatitis A,B, C profile- negative, JIMBO- normal, EBV,CMV - negative , HICV - negative CT abdomen showed no acute pathology Started diet and tolerating Continue close monitoring 2.DVT ppx lovenox
[2016-08-16] MEDS: POLYETHYLENE GLYCOL 3350 17 GM/Dose PACKET PO SCH ×2 (00:14→09:07)
[2016-08-16 07:20] LABS: HEMATOCRIT 46.3 % (35.0-51.0); MEAN CELL VOLUME 97.3 fl (80.0-94.0); MEAN CORPUSCULAR HEMOGLOBIN 33.1 pg (27.0-31.0); MEAN CORPUSCULAR HGB CONC 34.1 g/dL (33.0-37.0); RED CELL DISTRIBUTION WIDTH 13.4 % (11.5-14.5); WHITE BLOOD COUNT 8.4 K/uL (4.8-10.8)
[2016-08-16 07:24] LABS: ALB/GLOB RATIO 1.1 (1.0-2.1); ALKALINE PHOSPHATASE 140 U/L (38-126); BILIRUBIN,TOTAL 3.3 mg/dl (0.2-1.3); BLOOD UREA NITROGEN 5 mg/dl (9-20); CALCIUM 9.2 mg/dL (8.4-10.2); CARBON DIOXIDE 27 mmol/L (22-30); CHLORIDE 102 mmol/L (98-107); GFR AFRICAN-AMERICAN > 60; GLUCOSE,RANDOM 89 mg/dL (75-110); POTASSIUM 4.4 MMOL/L (3.6-5.0); SODIUM 138 mmol/l (132-148); TOTAL PROTEIN 7.7 G/DL (6.3-8.2)
[2016-08-16 07:32] LABS: AST/SGOT 1068 U/L (17-59)
[2016-08-16 08:06] LABS: ALT/SGPT 2359 U/L (21-72)
[2016-08-16 08:36] VITALS: BP 126/79; PULSE 74; RESP 20; TEMP 98.2; O2SAT 100
[2016-08-16] MEDS: Enoxaparin 40 mg Syringe SC SCH (09:07)
--- NOTE | 2016-08-16 11:04 | CP.PCM.PN ---
Objective - Vital Signs/Intake and Output Vital Signs (last 24 hours): Temp Pulse Resp BP Pulse Ox 98.2 F 74 20 126/79 100 08/16/16 08:35 08/16/16 08:35 08/16/16 08:35 08/16/16 08:35 08/16/16 08:35 - Medications Medications: Current Medications Enoxaparin Sodium (Lovenox) 40 mg SC DAILY [facility] PRN Reason: Protocol Last Admin: 08/16/16 09:07 Dose: 40 mg Ketorolac Tromethamine (Toradol) 15 mg IVP Q6 PRN PRN Reason: pain 4-10 Last Admin: 08/15/16 03:53 Dose: 15 mg Ondansetron HCl (Zofran Inj) 4 mg IVP Q6 PRN PRN Reason: Nausea/Vomiting Last Admin: 08/15/16 21:39 Dose: 4 mg Pantoprazole Sodium (Protonix Inj) 40 mg IVP BID [facility] Last Admin: 08/16/16 09:07 Dose: 40 mg Polyethylene Glycol (Miralax) 17 gm PO DAILY [facility] Last Admin: 08/16/16 09:07 Dose: 17 gm - Labs Labs: 08/16/16 06:00 08/16/16 06:00 PT 13.3 SECONDS (9.6-11.2) H 08/16/16 06:00 INR 1.28 (0.92-1.08) H 08/16/16 06:00 APTT 25.6 SECONDS (23.3-32.5) 08/13/16 16:45
--- NOTE | 2016-08-16 14:12 | CP.PCM.DIS ---
Provider - Provider Date of Admission: 08/14/16 17:06 Attending physician: Saskia De Santiago DO Consults: GI: Dr Velazco Time Spent in preparation of Discharge (in minutes): 40 Diagnosis - Discharge Diagnosis (1) Acute liver failure Status: Acute Hospital Course - Lab Results Lab Results: Most Recent Lab Values WBC 8.4 K/uL (4.8-10.8) 08/16/16 06:00 RBC 4.76 Mil/uL (4.40-5.90) 08/16/16 06:00 Hgb 15.8 g/dL (12.0-18.0) 08/16/16 06:00 Hct 46.3 % (35.0-51.0) 08/16/16 06:00 MCV 97.3 fl (80.0-94.0) H 08/16/16 06:00 MCH 33.1 pg (27.0-31.0) H 08/16/16 06:00 MCHC 34.1 g/dL (33.0-37.0) 08/16/16 06:00 RDW 13.4 % (11.5-14.5) 08/16/16 06:00 Plt Count 204 K/uL (130-400) 08/16/16 06:00 MPV 8.7 fl (7.2-11.7) 08/14/16 05:35 Neut % (Auto) 64.4 % (50.0-75.0) 08/14/16 05:35 Lymph % (Auto) 20.6 % (20.0-40.0) 08/14/16 05:35 [place] % (Auto) 11.8 % (0.0-10.0) H 08/14/16 05:35 Eos % (Auto) 2.8 % (0.0-4.0) 08/14/16 05:35 Baso % (Auto) 0.4 % (0.0-2.0) 08/14/16 05:35 Neut # 6.3 K/uL (1.8-7.0) 08/14/16 05:35 Lymph # 2.0 K/uL (1.0-4.3) 08/14/16 05:35 [place] # 1.2 K/uL (0.0-0.8) H 08/14/16 05:35 Eos # 0.3 K/uL (0.0-0.7) 08/14/16 05:35 Baso # 0.0 K/uL (0.0-0.2) 08/14/16 05:35 Sickle Cell Screen Negative (NEGATIVE) 08/13/16 18:32 PT 13.3 SECONDS (9.6-11.2) H 08/16/16 06:00 INR 1.28 (0.92-1.08) H 08/16/16 06:00 APTT 25.6 SECONDS (23.3-32.5) 08/13/16 16:45 Sodium 138 mmol/l (132-148) 08/16/16 06:00 Potassium 4.4 MMOL/L (3.6-5.0) 08/16/16 06:00 Chloride 102 mmol/L (98-107) 08/16/16 06:00 Carbon Dioxide 27 mmol/L (22-30) 08/16/16 06:00 Anion Gap 14 (10-20) 08/16/16 06:00 BUN 5 mg/dl (9-20) L 08/16/16 06:00 Creatinine 0.9 mg/dL (0.8-1.5) 08/16/16 06:00 Est GFR ( Amer) > 60 08/16/16 06:00 Est GFR (Non-Af Amer) > 60 08/16/16 06:00 Random Glucose 89 mg/dL (75-110) 08/16/16 06:00 Calcium 9.2 mg/dL (8.4-10.2) 08/16/16 06:00 Iron 142 ug/dL (49-181) 08/13/16 18:32 TIBC 270 ug/dL (250-450) 08/13/16 18:32 % Saturation 52 % (20-55) 08/13/16 18:32 Total Bilirubin 3.3 mg/dl (0.2-1.3) H 08/16/16 06:00 Direct Bilirubin 1.4 mg/ml (0.0-0.4) H 08/15/16 05:35 AST 1068 U/L (17-59) H 08/16/16 06:00 ALT 2359 U/L (21-72) H 08/16/16 06:00 Alkaline Phosphatase 140 U/L (38-126) H 08/16/16 06:00 Total Creatine Kinase 216 U/L (55-170) H 08/13/16 11:28 Total Protein 7.7 G/DL (6.3-8.2) 08/16/16 06:00 Albumin 4.1 g/dL (3.5-5.0) 08/16/16 06:00 Globulin 3.6 gm/dL (2.2-3.9) 08/16/16 06:00 Albumin/Globulin Ratio 1.1 (1.0-2.1) 08/16/16 06:00 Lipase 74 U/L (23-300) 08/13/16 11:23 Urine Color Britt[place] (YELLOW) 08/13/16 11:23 Urine Clarity Slighty-cloudy (Clear) 08/13/16 11:23 Urine pH 5.0 (5.0-8.0) 08/13/16 11:23 Ur Specific [place] 1.034 (1.003-1.030) H 08/13/16 11:23 Urine Protein 30 mg/dL (NEGATIVE) 08/13/16 11:23 Urine Glucose (UA) Neg mg/dL (Normal) 08/13/16 11:23 Urine Ketones Negative mg/dL (NEGATIVE) 08/13/16 11:23 Urine Blood Negative (NEGATIVE) 08/13/16 11:23 Urine Nitrate Negative (NEGATIVE) 08/13/16 11:23 Urine Bilirubin Negative (NEGATIVE) 08/13/16 11:23 Urine Urobilinogen 4.0 mg/dL (0.2-1.0) 08/13/16 11:23 Ur Leukocyte Esterase Neg [place]ie/uL (Negative) 08/13/16 11:23 Urine RBC (Auto) 6 /hpf (0-3) H 08/13/16 11:23 Urine Microscopic WBC 2 /hpf (0-5) 08/13/16 11:23 Ur Squamous Epith Cells < 1 /hpf (0-5) 08/13/16 11:23 Urine Opiates Screen Negative (NEGATIVE) 08/14/16 13:53 Urine Methadone Screen Negative (NEGATIVE) 08/14/16 13:53 Acetaminophen < 10.0 ug/ml (10.0-30.0) L 08/13/16 16:45 Ur Barbiturates Screen Negative (NEGATIVE) 08/14/16 13:53 Ur Phencyclidine Scrn Negative (NEGATIVE) 08/14/16 13:53 Ur Amphetamines Screen Negative (NEGATIVE) 08/14/16 13:53 U Benzodiazepines Scrn Negative (NEGATIVE) 08/14/16 13:53 U Oth Cocaine Metabols Negative (NEGATIVE) 08/14/16 13:53 U Cannabinoids Screen Positive (NEGATIVE) H 08/14/16 13:53 JIMBO Screen Negative (Negative) 08/13/16 18:32 CMV IgG Ab <0.91 (<0.91) 08/13/16 18:32 CMV IgM Ab <0.2 AI (< OR = 0.8) 08/13/16 18:32 EBV Capsid Ag IgM Ab <0.91 (<0.91) 08/13/16 18:32 Hepatitis A IgM Ab Negative (NEGATIVE) 08/13/16 14:00 Hep Bs Antigen Negative (NEGATIVE) 08/13/16 14:00 Hep B Core IgM Ab Negative (NEGATIVE) 08/13/16 14:00 Hepatitis C Antibody Negative (NEGATIVE) 08/13/16 14:00 HIV-1 Ab Rapid Screen Non reactive (NON REAC) 08/13/16 16:45 - Hospital Course Hospital Course: 21 year old male with no past medical history presented with 2 day history of moderate to severe waxing and waning abdominal pain midepigastric and in a band like distribution in the upper regions. This was associated with 2 episodes of nonbloody nonbilious emesis, nausea and anorexia. Patient was extensively questioned on substance abuse, alcohol use, recent travel, contacts with recent travel, sexual history, one partner in 5 years. US in ER was neg for RUQ pathology. Transaminases were significantly elevated, AST/ALT 1400/2300 , T.BILI=3.3. Hepatitis panel A,B,C EBV, CMV , JIMBO and HIV negative. 1.Acute Liver failure , unknown etiology Abdominal pain improved but LFT-s trending up AST/ALT 750/1900 to 1081/2391, Total Bili=3.3 GI consulted: Dr Velazco , recommended referral to [facility] liver center Hepatitis A,B, C profile- negative, JIMBO- normal, EBV,CMV - negative , HIV - negative CT abdomen showed no acute pathology Will transfer to [facility] for higher level of care Discharge Exam - Head Exam Head Exam: ATRAUMATIC, NORMAL INSPECTION, NORMOCEPHALIC - Eye Exam Eye Exam: EOMI, Normal appearance, PERRL Pupil Exam: NORMAL ACCOMODATION - ENT Exam ENT Exam: Mucous Membranes Moist, Normal External Ear Exam - Neck Exam Neck exam: Full Rom - Respiratory Exam Respiratory Exam: NORMAL BREATHING PATTERN. absent: Rales, Wheezes, Respiratory Distress - Cardiovascular Exam Cardiovascular Exam: REGULAR RHYTHM, +S1, +S2 - GI/Abdominal Exam GI & Abdominal Exam: Normal Bowel Sounds, Soft. absent: Tenderness - Back Exam Back exam: FULL ROM, NORMAL INSPECTION. absent: CVA tenderness (L), CVA tenderness (R), paraspinal tenderness, vertebral tenderness - Neurological Exam Neurological exam: Alert, CN II-XII Intact, Normal Gait, Oriented x3, Reflexes Normal - Psychiatric Exam Psychiatric exam: Normal Affect, Normal Mood - Skin Skin Exam: Dry, Normal Color, Warm Discharge Plan - Follow Up Plan Condition: FAIR Disposition: Trans to Other Acute Care Hosp Additional Instructions: d/c to [facility] for higher level of care as soon as bed is available
== END 2016-08-16 17:06 | disposition short-term general hospital (02) | DRG 206 ==
LOC: H.ER 10:33 → H.ERHOLD 15:56 → H.MEDSURG1 17:25 → OBSVTOIN 08-14 17:06
PROVIDERS: ADMIT Student in an Organized Health Care Education/Training Program; ATTEND Student in an Organized Health Care Education/Training Program
PROC: 3E0234Z Introduction of Serum, Toxoid and Vaccine into Muscle, Percutaneous Approach (ICD-10-PCS; principal; 2016-08-13)
DX: K72.00 Acute and subacute hepatic failure without coma (principal); Z23 Encounter for immunization